=== PATIENT | female | born 1975 | race Caucasian/White ===

== ENCOUNTER 2021-07-12 18:46 | Emergency (ER) | payer MEDICARE ==
[~2021-07-12 18:46] MED LIST: ALBUTEROL 0.083%; AMLODIPINE BESYL5 MG PO; CLEOCIN HCL300 MG PO; COLACE 100MG C100 MG PO; COMBIVENT RESPIM4 GM INH; CRESTOR5 MG PO; CYCLOBENZAPRINE10 MG PO; FLEXERIL 10 MG10 MG PO; GABAPENTIN400 MG PO; HALOBETASOL; IBUPROFEN600 MG PO; LOSARTAN POTASS50 MG PO; METFORMIN HCL500 MG PO; NORCO 10-325 T1 EACH PO; OMEPRAZOLE20 M1 PO; ULTRAM50 MG PO; VENLAFAXINE HCL75 MG PO; VITAMIN D21250 MCG PO
[2021-07-12] MEDS ORDERED: PEPCID20 MG PO (22:39)
[2021-07-12] MEDS ORDERED: PREDNISONE 20 M20 MG PO (22:39)
[2021-07-12] MEDS ORDERED: ZYRTEC10 MG PO (22:39)
== END 2021-07-12 22:45 | disposition home or self-care (01) ==
LOC: ER1 18:46
DX: J06.9 Acute upper respiratory infection, unspecified (principal); J98.01 Acute bronchospasm; I10 Essential (primary) hypertension; Z88.2 Allergy status to sulfonamides; Z20.822 Contact with and (suspected) exposure to COVID-19; Z91.040 Latex allergy status; Z91.041 Radiographic dye allergy status
CPT/HCPCS: 71045; 93005; 94640; 94664; 94760; 96374; 96375; 99285; J1200; J2930; U0002